=== PATIENT | female | born 1970 | race Asian ===

== ENCOUNTER 2016-09-08 05:48 | Emergency (ER) | payer OTHER ==
[~2016-09-08] VITALS: Ht 152.4 cm; Wt 70.0 kg
[~2016-09-08 05:48] MED LIST: ACET-1953 PO; CLON.1 PO; ENAL-54 PO; ENAL2.5T PO; FERR1TAB45 PO; HYDR25TA PO; METF500T4 PO
[2016-09-08] MEDS ORDERED: LISI-662 PO (06:01)
[2016-09-08] MEDS ORDERED: PRAV10TA39 PO (06:01)
[2016-09-08 06:02] LABS: GLUCOSE,POINT OF CARE 214 MG/DL (70-110)
[2016-09-08] MEDS ORDERED: DiphenhydrAMINE HCL 25 MG CAPSULE PO ONE (06:30)
[2016-09-08] MEDS ORDERED: PredniSONE 20 MG TABLET PO ONE (06:30)
[2016-09-08] MEDS ORDERED: AmLODIPine BESYLATE 5 MG TABLET PO ONE (06:45)
[2016-09-08 07:30] VITALS: BP 162/88
== END 2016-09-08 07:32 | disposition home or self-care (01) ==
LOC: EMS 05:50
DX: T78.3XXA Angioneurotic edema, initial encounter (principal); E11.9 Type 2 diabetes mellitus without complications; E78.00 Pure hypercholesterolemia, unspecified; I10 Essential (primary) hypertension
CPT/HCPCS: 82962; 99284; J7512

== ENCOUNTER 2020-01-25 07:48 | Observation (INO) | payer OTHER ==
[2020-01-25] VITALS (22 sets, daily range): BP systolic 148–177; BP diastolic 67–99
[~2020-01-25] VITALS: Ht 152.4 cm; Wt 68.2 kg
[~2020-01-25 07:48] MED LIST changes: -ACET-1953 PO; -CLON.1 PO; +CLON0.1T83 PO; -ENAL-54 PO; -ENAL2.5T PO; +ENAL2.5T16 PO; +LISI-662 PO; +METF-960 PO; -METF500T4 PO; +PRAV10TA39 PO
[2020-01-25] MEDS ORDERED: GLIP2.5ER PO (07:58)
[2020-01-25 08:57] LABS: ANION GAP 14 mmol/L (8-16); CALCIUM, TOTAL 8.3 mg/dL (8.8-10.5); CARBON DIOXIDE 18 mmol/L (22-29); CHLORIDE 101 mmol/L (98-107); CREATININE 0.86 mg/dL (0.60-1.30); GLOMERULAR FILTR. RATE CALC > 60 mL/min (>60); GLUCOSE,RANDOM 255 mg/dL (70-110); POTASSIUM 4.3 mmol/L (3.5-5.1); SODIUM SERUM 133 mmol/L (136-145); UREA NITROGEN, BLOOD 8 mg/dL (7-18)
[2020-01-25 09:00] LABS: ALANINE AMINOTRANSFERASE 36 U/L (12-78); ALBUMIN 3.2 g/dL (3.4-5.0); ALKALINE PHOSPHATASE 79 U/L (46-116); ASPARTATE AMINOTRANSFERASE 21 U/L (15-37); BILIRUBIN,TOTAL 0.7 mg/dL (0.1-1.0); TOTAL PROTEIN, SERUM 6.3 g/dL (6.4-8.2)
[2020-01-25 09:57] LABS: BASOPHILS % (AUTO) 0.9 % (0.0-2.0); EOSINOPHILS % (AUTO) 0.4 % (1.0-6.0); LYMPHOCYTES # (AUTO) 0.9 K/uL (1.0-4.8); LYMPHOCYTES % (AUTO) 15.7 % (22.0-44.0); MEAN CORPUSCULAR HEMOGLOBIN 15.6 pg (26.0-34.0); MEAN CORPUSCULAR HGB CONC 28.4 G/dL (31.0-37.0); MEAN CORPUSCULAR VOLUME 55 fL (80-100); MONOCYTES # (AUTO) 0.8 K/uL (0.1-1.0); MONOCYTES % (AUTO) 13.8 % (2.0-9.0); NEUTROPHILS # (AUTO) 3.8 K/uL (1.8-7.7); NEUTROPHILS % (AUTO) 69.2 % (40.0-70.0); PLATELET COUNT (AUTO) 413 K/uL (150-450); RED CELL DISTRIBUTION WIDTH 21.6 % (11.5-14.5)
[2020-01-25 10:03] LABS: INR 1.1 (0.9-1.1); PROTHROMBIN TIME 11.7 SEC (9.4-11.6)
[2020-01-25 10:04] LABS: HEMOGLOBIN 3.3 g/dL (12.0-16.0)
[2020-01-25 10:05] LABS: HEMATOCRIT 11.5 % (36-46)
[2020-01-25 10:43] LABS: HCG,QUANTITATIVE 3 mIU/mL (0-6)
[2020-01-25] MEDS ORDERED: METO50 PO (12:13)
[2020-01-25] MEDS ORDERED: FERR-89 PO (12:13)
[2020-01-25] MEDS ORDERED: GLIP10 PO (12:13)
[2020-01-25] MEDS ORDERED: AMLO10TA55 PO (12:13)
[2020-01-25] MEDS ORDERED: CLON0.2T PO (12:13)
[2020-01-25] MEDS ORDERED: TRANEXAMIC ACID 1,000 MG in DEXTROSE 5%-WATER 50 ML IV ONE (12:15)
[2020-01-25] MEDS ORDERED: 0.9% SODIUM CHLORIDE 10 ML SYRINGE IVP PRN (13:00)
[2020-01-25] MEDS ORDERED: ACETAMINOPHEN 325 MG TABLET PO PRN (13:00)
[2020-01-25] MEDS ORDERED: ONDANSETRON HCL 4 MG/2 ML VIAL IVP PRN (13:00)
[2020-01-25 13:13] LABS: COVID AG,FIA SOURCE NASOPHARYNGEAL
[2020-01-25] MEDS ORDERED: DiphenhydrAMINE HCL 25 MG CAPSULE PO ONE (15:30)
[2020-01-25] MEDS ORDERED: SODIUM CHLORIDE 0.9% 250 ML IV ONE (15:30)
[2020-01-25] MEDS ORDERED: ACETAMINOPHEN 500 MG TABLET PO ONE (15:30)
[2020-01-25 17:27] LABS: GLUCOSE,POINT OF CARE 132 MG/DL (70-110)
[2020-01-25 18:56] LABS: BASOPHILS % (AUTO) 1.2 % (0.0-2.0); EOSINOPHILS % (AUTO) 0.6 % (1.0-6.0); LYMPHOCYTES # (AUTO) 1.1 K/uL (1.0-4.8); LYMPHOCYTES % (AUTO) 20.8 % (22.0-44.0); MEAN CORPUSCULAR HEMOGLOBIN 18.2 pg (26.0-34.0); MEAN CORPUSCULAR HGB CONC 29.2 G/dL (31.0-37.0); MEAN CORPUSCULAR VOLUME 62 fL (80-100); MONOCYTES # (AUTO) 0.7 K/uL (0.1-1.0); MONOCYTES % (AUTO) 13.8 % (2.0-9.0); NEUTROPHILS # (AUTO) 3.4 K/uL (1.8-7.7); NEUTROPHILS % (AUTO) 63.6 % (40.0-70.0); PLATELET COUNT (AUTO) 407 K/uL (150-450); RED BLOOD CELL COUNT(AUTO) 2.93 MIL/uL (4.00-5.20); RED CELL DISTRIBUTION WIDTH 29.4 % (11.5-14.5)
[2020-01-25 19:04] LABS: HEMOGLOBIN 5.3 g/dL (12.0-16.0)
[2020-01-25 19:05] LABS: HEMATOCRIT 18.3 % (36-46)
[2020-01-25 20:32] LABS: PLATELET MORPHOLOGY COMMENT GIANT PLTS PRESENT
[2020-01-26] VITALS (7 sets, daily range): BP systolic 151–177; BP diastolic 77–91
[2020-01-26 03:36] LABS: HEMATOCRIT 23.2 % (36-46); HEMOGLOBIN 7.3 g/dL (12.0-16.0)
[2020-01-26 03:52] LABS: ALANINE AMINOTRANSFERASE 32 U/L (12-78); ALKALINE PHOSPHATASE 70 U/L (46-116); ANION GAP 13 mmol/L (8-16); ASPARTATE AMINOTRANSFERASE 18 U/L (15-37); BILIRUBIN,TOTAL 1.8 mg/dL (0.1-1.0); CALCIUM, TOTAL 8.6 mg/dL (8.8-10.5); CARBON DIOXIDE 20 mmol/L (22-29); CHLORIDE 104 mmol/L (98-107); CREATININE 0.84 mg/dL (0.60-1.30); GLOMERULAR FILTR. RATE CALC > 60 mL/min (>60); GLUCOSE,RANDOM 114 mg/dL (70-110); POTASSIUM 3.8 mmol/L (3.5-5.1); SODIUM SERUM 137 mmol/L (136-145); TOTAL PROTEIN, SERUM 6.2 g/dL (6.4-8.2); UREA NITROGEN, BLOOD 9 mg/dL (7-18)
[2020-01-26] MEDS ORDERED: INFLUENZA VIRUS VACCINE QVS 2020-21 (6MO+)/PF 60 MCG/0.5 ML SYRINGE IM ONE (12:15)
[2020-01-26] MEDS ORDERED: PNEUMOCOCCAL VACCINE POLYVALENT 0.5 ML VIAL [PPSV23] IM ONE (12:15)
[2020-01-26] MEDS ORDERED: FERR-89 PO (14:23)
[2020-01-26] MEDS ORDERED: SOD FERRIC GLUC COMPLX/SUCROSE 125 MG in SODIUM CHLORIDE 0.9% 100 ML IV ONE (15:00)
[2020-01-26] MEDS ORDERED: SODIUM CHLORIDE 0.9% 500 ML IV ONE (15:19)
== END 2020-01-26 17:10 | disposition home or self-care (01) ==
LOC: EMS 07:48 → 6N 12:24 → UNDOADMIN 12:24 → INTOOBSV 01-26 10:59 → 6N 01-26 10:59
PROVIDERS: ADMIT Obstetrics & Gynecology; ATTEND Obstetrics & Gynecology
DX: D64.9 Anemia, unspecified (principal); Z20.828 Contact with and (suspected) exposure to other viral communicable diseases; N93.8 Other specified abnormal uterine and vaginal bleeding; I10 Essential (primary) hypertension; E11.65 Type 2 diabetes mellitus with hyperglycemia; D25.9 Leiomyoma of uterus, unspecified; E66.9 Obesity, unspecified; Z79.899 Other long term (current) drug therapy
CPT/HCPCS: 36415 ×2; 36430; 76856; 80053 ×2; 82962; 84702; 85014; 85018; 85025; 85610; 86850; 86900; 86901; 86923; 87426; 96365; 96367; 99219; 99285; J2916; J3490; J7040; J7050 ×2; J7060; P9016; U0003; 96366

== ENCOUNTER 2020-07-03 07:03 | Emergency (ER) | payer OTHER ==
[~2020-07-03] VITALS: Ht 154.9 cm; Wt 66.2 kg
[~2020-07-03 07:03] MED LIST changes: +AMLO10TA55 PO; -CLON0.1T83 PO; +DOCU-275 PO; -ENAL2.5T16 PO; -FERR1TAB45 PO; +IBUP-2070 PO; -LISI-662 PO; +LISI-894 PO; -METF-960 PO; +OXYC5 PO; -PRAV10TA39 PO
[2020-07-03] MEDS ORDERED: METF-960 PO (07:09)
[2020-07-03 08:12] LABS: BASOPHILS % (AUTO) 0.7 % (0.0-2.0); EOSINOPHILS % (AUTO) 2.3 % (1.0-6.0); HEMATOCRIT 38.7 % (36-46); HEMOGLOBIN 12.3 g/dL (12.0-16.0); LYMPHOCYTES # (AUTO) 0.8 K/uL (1.0-4.8); LYMPHOCYTES % (AUTO) 11.8 % (22.0-44.0); MEAN CORPUSCULAR HEMOGLOBIN 25.5 pg (26.0-34.0); MEAN CORPUSCULAR HGB CONC 31.9 G/dL (31.0-37.0); MEAN CORPUSCULAR VOLUME 80 fL (80-100); MONOCYTES # (AUTO) 0.7 K/uL (0.1-1.0); MONOCYTES % (AUTO) 10.3 % (2.0-9.0); NEUTROPHILS % (AUTO) 74.9 % (40.0-70.0); PLATELET COUNT (AUTO) 263 K/uL (150-450); RED BLOOD CELL COUNT(AUTO) 4.83 MIL/uL (4.00-5.20); RED CELL DISTRIBUTION WIDTH 15.3 % (11.5-14.5)
[2020-07-03 08:22] LABS: ANION GAP 8 mmol/L (8-16); CALCIUM, TOTAL 8.5 mg/dL (8.8-10.5); CARBON DIOXIDE 28 mmol/L (22-29); CHLORIDE 102 mmol/L (98-107); CREATININE 0.71 mg/dL (0.60-1.30); GLOMERULAR FILTR. RATE CALC > 60 mL/min (>60); GLUCOSE,RANDOM 153 mg/dL (70-110); POTASSIUM 4.1 mmol/L (3.5-5.1); SODIUM SERUM 138 mmol/L (136-145); UREA NITROGEN, BLOOD 9 mg/dL (7-18)
[2020-07-03 08:25] LABS: PROTHROMBIN TIME 10.3 SEC (9.4-11.6)
[2020-07-03 08:28] LABS: ALANINE AMINOTRANSFERASE 25 U/L (12-78); ALBUMIN 3.7 g/dL (3.4-5.0); ALKALINE PHOSPHATASE 127 U/L (46-116); ASPARTATE AMINOTRANSFERASE 17 U/L (15-37); BILIRUBIN,TOTAL 0.4 mg/dL (0.1-1.0); TOTAL PROTEIN, SERUM 7.2 g/dL (6.4-8.2)
[2020-07-03] MEDS ORDERED: HYDROCHLOROTHIAZIDE 25 MG TABLET PO ONE (09:15)
[2020-07-03] MEDS ORDERED: LISINOPRIL 10 MG TABLET PO ONE (09:45)
[2020-07-03] MEDS ORDERED: CloNIDine HCL 0.1 MG TABLET PO ONE ×2 (10:45→11:30)
[2020-07-03 13:10] VITALS: BP 166/91
== END 2020-07-03 13:31 | disposition home or self-care (01) ==
LOC: EMS 07:03
DX: I10 Essential (primary) hypertension (principal); N93.8 Other specified abnormal uterine and vaginal bleeding; E11.9 Type 2 diabetes mellitus without complications; E78.00 Pure hypercholesterolemia, unspecified; Z86.2 Personal history of diseases of the blood and blood-forming organs and certain disorders involving the immune mechanism; Z79.84 Long term (current) use of oral hypoglycemic drugs; Z79.899 Other long term (current) drug therapy
CPT/HCPCS: 80053; 82962; 85025; 85610; 85730; 86850; 86900; 86901; 99285

== ENCOUNTER 2021-02-26 08:25 | Emergency (ER) | payer OTHER ==
[~2021-02-26] VITALS: Ht 144.8 cm; Wt 74.5 kg
[~2021-02-26 08:25] MED LIST changes: +DOCU-270 PO; -DOCU-275 PO; +METF-1211 PO
[2021-02-26] MEDS ORDERED: KETOROLAC TROMETHAMINE 30 MG/ML VIAL IVP ONE (09:15)
[2021-02-26] MEDS ORDERED: CefTRIAXone 1 GM/DEXTROSE 50 ML IV ONE (09:15)
[2021-02-26 09:26] LABS: BASOPHILS % (AUTO) 0.6 % (0.0-2.0); EOSINOPHILS % (AUTO) 1.4 % (1.0-6.0); HEMOGLOBIN 12.9 g/dL (12.0-16.0); LYMPHOCYTES % (AUTO) 9.2 % (22.0-44.0); MEAN CORPUSCULAR HEMOGLOBIN 24.6 pg (26.0-34.0); MEAN CORPUSCULAR VOLUME 75 fL (80-100); MONOCYTES # (AUTO) 0.7 K/uL (0.1-1.0); NEUTROPHILS # (AUTO) 8.6 K/uL (1.8-7.7); NEUTROPHILS % (AUTO) 81.8 % (40.0-70.0); PLATELET COUNT (AUTO) 309 K/uL (150-450); RED BLOOD CELL COUNT(AUTO) 5.24 MIL/uL (4.00-5.20); RED CELL DISTRIBUTION WIDTH 16.6 % (11.5-14.5)
[2021-02-26 09:34] LABS: ANION GAP 7 mmol/L (8-16); CALCIUM, TOTAL 9.2 mg/dL (8.8-10.5); CARBON DIOXIDE 27 mmol/L (22-29); CHLORIDE 101 mmol/L (98-107); CREATININE 0.67 mg/dL (0.60-1.30); GLOMERULAR FILTR. RATE CALC > 60 mL/min (>60); GLUCOSE,RANDOM 197 mg/dL (70-110); POTASSIUM 4.2 mmol/L (3.5-5.1); SODIUM SERUM 135 mmol/L (136-145); UREA NITROGEN, BLOOD 9 mg/dL (7-18)
[2021-02-26] MEDS: MORPHINE SULFATE 4 MG/ML SYRINGE IVP ONE ×2 (09:38→09:48)
[2021-02-26 09:40] LABS: ALANINE AMINOTRANSFERASE 31 U/L (12-78); ALBUMIN 3.1 g/dL (3.4-5.0); ALKALINE PHOSPHATASE 148 U/L (46-116); ASPARTATE AMINOTRANSFERASE 27 U/L (15-37); BILIRUBIN,TOTAL 0.4 mg/dL (0.1-1.0); TOTAL PROTEIN, SERUM 8.2 g/dL (6.4-8.2)
[2021-02-26 11:15] VITALS: BP 175/95
[2021-02-26] MEDS ORDERED: HYDROCODONE/ACETAMINOPHEN 5-325 MG TABLET PO ONE (11:15)
[2021-02-26] MEDS ORDERED: MetroNIDAZOLE 250 MG TABLET PO ONE (11:15)
[2021-02-26] MEDS ORDERED: AMOX TR/POT CLAV 875 MG/125 MG TABLET PO ONE (11:15)
== END 2021-02-26 11:39 | disposition home or self-care (01) ==
LOC: EMS 08:25
DX: K04.7 Periapical abscess without sinus (principal); E11.65 Type 2 diabetes mellitus with hyperglycemia; I10 Essential (primary) hypertension; Z79.84 Long term (current) use of oral hypoglycemic drugs
CPT/HCPCS: 36415; 80053; 82962; 85025; 96365; 96375; 99284; J0696; J1885; 99283; J2270

== ENCOUNTER 2021-10-07 09:49 | Emergency (ER) | payer OTHER ==
[~2021-10-07] VITALS: Ht 152.4 cm; Wt 66.8 kg
[~2021-10-07 09:49] MED LIST changes: -DOCU-270 PO; +DOCU-385 PO
[2021-10-07 11:30] LABS: BASOPHILS % (AUTO) 0.5 % (0.0-2.0); EOSINOPHILS % (AUTO) 0.3 % (1.0-6.0); HEMATOCRIT 38.8 % (36-46); HEMOGLOBIN 12.3 g/dL (12.0-16.0); LYMPHOCYTES # (AUTO) 1.5 K/uL (1.0-4.8); LYMPHOCYTES % (AUTO) 18.2 % (22.0-44.0); MEAN CORPUSCULAR HEMOGLOBIN 22.7 pg (26.0-34.0); MEAN CORPUSCULAR HGB CONC 31.8 G/dL (31.0-37.0); MEAN CORPUSCULAR VOLUME 72 fL (80-100); MONOCYTES # (AUTO) 0.7 K/uL (0.1-1.0); MONOCYTES % (AUTO) 9.2 % (2.0-9.0); NEUTROPHILS # (AUTO) 5.8 K/uL (1.8-7.7); NEUTROPHILS % (AUTO) 71.8 % (40.0-70.0); PLATELET COUNT (AUTO) 215 K/uL (150-450); RED BLOOD CELL COUNT(AUTO) 5.42 MIL/uL (4.00-5.20); RED CELL DISTRIBUTION WIDTH 17.4 % (11.5-14.5)
[2021-10-07] MEDS ORDERED: SODIUM CHLORIDE 0.9% 1,000 ML IV ONE (11:30)
[2021-10-07 11:54] LABS: CALCIUM, TOTAL 9.1 mg/dL (8.8-10.5); CREATININE 1.07 mg/dL (0.60-1.30); POTASSIUM 3.6 mmol/L (3.5-5.1)
[2021-10-07] MEDS ORDERED: INSULIN REGULAR, HUMAN 100 UNITS/ML IVP ONE (12:15)
[2021-10-07] MEDS ORDERED: POTASSIUM CHLORIDE 20 MEQ in SODIUM CHLORIDE 0.9% 1,000 ML IV ONE (12:15)
[2021-10-07] MEDS ORDERED: LISI-894 PO (14:36)
[2021-10-07] MEDS ORDERED: METF-1211 PO (14:36)
[2021-10-07] MEDS ORDERED: HYDR25TA PO (14:36)
[2021-10-07] MEDS ORDERED: AMLO10TA55 PO (14:36)
[2021-10-07 14:46] LABS: GLUCOSE,POINT OF CARE 193 MG/DL (70-110)
[2021-10-07 14:58] VITALS: BP 181/104
== END 2021-10-07 15:07 | disposition home or self-care (01) ==
LOC: EMS 09:52
DX: E11.65 Type 2 diabetes mellitus with hyperglycemia (principal); I10 Essential (primary) hypertension; Z59.00 Homelessness unspecified; Z91.14 Patient's other noncompliance with medication regimen
CPT/HCPCS: 99285; 96374; 71045; 96361; 80048; 85025; 36415; 82948; 93005; J1815; J3480; J7030; 82962